=== PATIENT | male | born 1975 | race Caucasian/White ===

== ENCOUNTER 2020-02-29 18:06 | Inpatient (IN) | payer MEDICAID ==
[~2020-02-29] VITALS: Ht 188 cm; Wt 111.1 kg
[2020-02-29] MEDS ORDERED: ASPIRIN81 MG PO (18:13)
[2020-02-29] MEDS ORDERED: ALDACTONE25 MG PO (18:13)
[2020-02-29] MEDS ORDERED: GLUCOPHAGE1000 MG PO (18:13)
[2020-02-29] MEDS ORDERED: ENTRESTO 24 MG1 EACH PO (18:13)
[2020-02-29] MEDS ORDERED: COREG6.25 MG PO (18:13)
--- NOTE | 2020-02-29 18:15 | NUR ---
FSBS= 550 MG/DL
--- NOTE | 2020-02-29 18:25 | NUR ---
URINE SPEC COLLECTED, LABELED AT BS AND SENT TO LAB
[2020-02-29 18:34] VITALS: BP 98/65
[2020-02-29 18:44] LABS: BASOPHILS 0.6 % (0-2); EOSINOPHILS 4.2 % (0-7); HEMATOCRIT 38.2 % (42.0-54.0); IMMATURE GRANULOCYTES 0.1 % (0-5); LYMPHOCYTES 20.9 % (15-50); MCV 85.3 fL (80.0-100.0); MEAN PLATELET VOLUME 9.7 fL (7.4-10.4); MONOCYTES 8.8 % (2-11); NEUTROPHILS 65.4 % (40-80); PLATELET COUNT 171 10x3/uL (130-400); RBC 4.48 10x6/uL (4.20-6.10); RDW 12.6 % (11.5-14.5); WBC 6.9 10x3/uL (4.8-10.8)
[2020-02-29 18:54] LABS: ANION GAP 14.5 mmol/L (8-16); BILIRUBIN - TOTAL 0.42 mg/dL (0.2-1.3); CALCIUM 9.6 mg/dL (8.5-10.1); CARBON DIOXIDE 24.2 mmol/L (21.0-32.0); CREATININE - SERUM 1.9 mg/dL (0.6-1.3); MAGNESIUM - SERUM 2.1 mg/dL (1.8-2.4); POTASSIUM - SERUM 5.7 mmol/L (3.5-5.1); PROTEIN - SERUM 9.2 g/dL (6.4-8.2)
[2020-02-29 19:14] LABS: BILIRUBIN NEGATIVE (NEGATIVE); GLUCOSE 1000 mg/dL (NEGATIVE); KETONE NEGATIVE (NEGATIVE); NITRITE NEGATIVE (NEGATIVE); SPECIFIC GRAVITY 1.015 (1.005-1.020); UROBILINOGEN NORMAL (NORMAL)
[2020-02-29 19:20] VITALS: BP 103/75
--- NOTE | 2020-02-29 21:15 | NUR ---
BS 260 B/P 89/69 HR 70. EDP NOTIFIED. ASYMPTOMATIC. WILL CONTINUE TO MONITOR
[2020-02-29 22:32] VITALS: BP 95/61
[2020-02-29 23:18] VITALS: BP 93/61; BMI 31.4
[2020-03-01 04:20] LABS: BASOPHILS 0.5 % (0-2); EOSINOPHILS 5.1 % (0-7); HEMATOCRIT 34.6 % (42.0-54.0); HEMOGLOBIN 11.6 g/dL (13.5-17.5); IMMATURE GRANULOCYTES 0.2 % (0-5); LYMPHOCYTES 29.2 % (15-50); MCH 28.2 pg (26.0-34.0); MCHC 33.5 g/dL (31.0-37.0); MCV 84.2 fL (80.0-100.0); MEAN PLATELET VOLUME 9.2 fL (7.4-10.4); MONOCYTES 9.3 % (2-11); NEUTROPHILS 55.7 % (40-80); PLATELET COUNT 147 10x3/uL (130-400); RBC 4.11 10x6/uL (4.20-6.10); RDW 12.6 % (11.5-14.5); WBC 5.7 10x3/uL (4.8-10.8)
[2020-03-01 05:32] LABS: ANION GAP 14.2 mmol/L (8-16); CARBON DIOXIDE 23.2 mmol/L (21.0-32.0); CREATININE - SERUM 1.6 mg/dL (0.6-1.3); PHOSPHOROUS 3.7 mg/dL (2.5-4.9)
[2020-03-01 05:35] LABS: POTASSIUM - SERUM 4.4 mmol/L (3.5-5.1)
--- NOTE | 2020-03-01 07:15 | NUR ---
ALERT AND ORIENTED. NO C/O PAIN. NO S/S OF ACUTE DISTRESS NOTED. STRICT I&O. DAILY WEIGHT, 245.9. IV TO LEFT FOREARM, NS INFUSING @ 100ML/HR. SITE PATENT WITHOUT REDNESS OR SWELLING. ON TELEMETRY 67 SR. DENIES ANY NEEDS AT THIS TIME. CALL LIGHT IN REACH. WILL CONTINUE TO MONITOR.
[2020-03-01 07:57] VITALS: BP 120/76
[2020-03-01 12:00] VITALS: BP 118/72
[2020-03-01 12:55] VITALS: Ht 188 cm; Wt 111.1 kg
--- NOTE | 2020-03-01 18:31 | NUR ---
ALERT AND ORIENTED. SITTING UP IN BED EATING SUPPER. NO C/O PAIN. NO S/S OF ACUTE DISTRESS NOTED. DENIES ANY NEEDS AT THIS TIME. CALL LIGHT IN REACH. WILL CONTINUE TO MONITOR.
[2020-03-01 20:00] VITALS: BP 92/62
--- NOTE | 2020-03-01 20:00 | NUR ---
ALERT SITTING UP ON SIDE OF BED, C/O OF CONSTIPATION REQUESTING SOMETHING TO RELIVE IT OR WILL CALL ANF GO HOME, INSTRUCTED WILL CALL AND SEE IF CAN GET SOMETHING , SEE SHIFT ASSESSMENT, CALL GLENYS BOOTH
--- NOTE | 2020-03-01 20:15 | NUR ---
SKYLER ZIMMERMAN APN PAGED AND RETURNED CALL ORDER RECIEVED FOR [facility], GIVEN ORDERED
[2020-03-02] VITALS: BP 110/65
[2020-03-02 04:00] VITALS: BP 115/72
[2020-03-02 04:25] LABS: BASOPHILS 0.3 % (0-2); EOSINOPHILS 4.1 % (0-7); HEMATOCRIT 35.9 % (42.0-54.0); IMMATURE GRANULOCYTES 0.2 % (0-5); MCH 28.4 pg (26.0-34.0); MCHC 33.4 g/dL (31.0-37.0); MCV 85.1 fL (80.0-100.0); MEAN PLATELET VOLUME 9.4 fL (7.4-10.4); MONOCYTES 7.5 % (2-11); NEUTROPHILS 60.9 % (40-80); PLATELET COUNT 161 10x3/uL (130-400); RBC 4.22 10x6/uL (4.20-6.10); RDW 12.9 % (11.5-14.5); WBC 5.9 10x3/uL (4.8-10.8)
[2020-03-02 04:45] LABS: ANION GAP 12.1 mmol/L (8-16); CALCIUM 8.7 mg/dL (8.5-10.1); CARBON DIOXIDE 25.1 mmol/L (21.0-32.0); CREATININE - SERUM 1.6 mg/dL (0.6-1.3); MAGNESIUM - SERUM 1.8 mg/dL (1.8-2.4); PHOSPHOROUS 3.4 mg/dL (2.5-4.9); POTASSIUM - SERUM 4.2 mmol/L (3.5-5.1)
[2020-03-02 08:00] VITALS: BP 115/77
--- NOTE | 2020-03-02 09:00 | NUR ---
ALERT AND ORIENTED X4. PATIENT SITTING UP ON SOB AND VOICES DESIRE TO GO HOME. IV TO LEFT FOREAM AT PRESCRUBED RATE. TELEMETRY INTACT. REFUSES SCD'S AND LOVENOX. DISCUSSED RISK VERSUS BENEFITS AND STATES WAKES IN ROOM. NO S/S OF THROMBOSIS OR EMBOLISM AT THIS TIME. TELEMETRY INTACT . ENCOURAGED TO USE CALL LIGHT FIR ASSIST
[2020-03-02] MEDS ORDERED: GLUCOTROL 5 MG T5 MG PO (11:59)
--- NOTE | 2020-03-02 12:51 | NUR ---
ALL DISCHARGE INSTRUCTIONS COVERED WITH PT. PT DENIES FURTHER QUESTIONS/CONCERNS/NEEDS AT THIS TIME. ALL DISCHARGE PAPERS SIGNED. PIV TO LEFT FA REMOVED WITH CATHETER TIP INTACT. DRESSING APPLIED. PT REFUSES WHEELCHAIR ASSISTANCE AND AMBULATES FROM ROOM FREELY WITHOUT APPARENT S/S OF DISTRESS NOTED. PT DENIES FURTHER NEEDS. ALL SIGNED DISCHARGE PAPERS PLACED IN PT CHART.
--- NOTE | 2020-03-02 13:28 | MORECARE ---
CASE MANAGEMENT DISCHARGE SUMMARY PATIENT: BLANCA VIVEROS UNIT: [id number] ADM DATE: 03/01/20 AGE: 44 : 75 SEX: M ROOM/BED: D.2238 AUTHOR: REINA KEMP PHYSICIAN: REFERRING PHYSICIAN: PATRICIA BRIONES MD DATE OF SERVICE: 03/02/20 Discharge Plan Patient Name: BLANCA VIVEROS Facility: [facility]:[place] : 1975 Planned Disposition: Home Anticipated Discharge Date: Discharge Date: Expected LOS: Initial Reviewer: [email or web address] Initial Review Date: 03/02/2020 Generated: 03/02/20 2:27 pm Patient Name: BLANCA VIVEROS Page 94040 at 1328 All edits/amendments must be made on the electronic document DICTATION DATE: 03/02/20 1327 DATABASE MARKETING MANAGER: ELIJAH 03/02/20 1327 RPT#: [id number] DC DATE: STATUS: ADM IN [facility] [address] [place] [address] END OF REPORT
--- NOTE | 2020-03-02 13:35 | MORECARE ---
CASE MANAGEMENT DISCHARGE SUMMARY PATIENT: BLANCA VIVEROS UNIT: [id number] ADM DATE: 03/01/20 AGE: 44 : 75 SEX: M ROOM/BED: D.2238 AUTHOR: REINA KEMP PHYSICIAN: REFERRING PHYSICIAN: PATRICIA BRIONES MD DATE OF SERVICE: 03/02/20 Discharge Plan Patient Name: BLANCA VIVEROS Facility: [facility]:[place] : 1975 Planned Disposition: Home Anticipated Discharge Date: Discharge Date: Expected LOS: Initial Reviewer: [email or web address] Initial Review Date: 03/02/2020 Generated: 03/02/20 2:35 pm DCPIA - Discharge Planning Initial Assessment Updated by [email or web address]: Jose Alfredo Donohue on 03/02/20 1:30 pm * Is the patient Alert and Oriented? Yes * How many steps to enter\exit or inside your home? * PCP DR. KAMALA BERRY ABERDEEN * Pharmacy [facility] * Preadmission Environment Home Alone * ADLs Independent * Equipment None * Other Equipment NO MEDICAL EQUIPMENT PROVIDER PREFERENCE * List name and contact numbers for known caregivers / representatives who currently or will assist patient after discharge: GÓMEZ CAMACHO, GIRLFRIEND, * Verbal permission to speak to the caregivers and representatives has been obtained from the patient. N/A * Community resources currently utilized None * Please name any agencies selected above. NONE * Additional services required to return to the preadmission environment? No * Can the patient safely return to the preadmission environment? Yes * Has this patient been hospitalized within the prior 30 days at any hospital? No Last DP export: 03/02/20 12:28 pm Patient Name: BLANCA VIVEROS Page 91970 at 1335 All edits/amendments must be made on the electronic document DICTATION DATE: 03/02/20 1335 CERAMIC SPRAYER: ELIJAH 03/02/20 1335 RPT#: [id number] DC DATE: STATUS: ADM IN [facility] [address] [place] [address] END OF REPORT
--- NOTE | 2020-03-02 13:50 | MORECARE ---
CASE MANAGEMENT DISCHARGE SUMMARY PATIENT: BLANCA VIVEROS UNIT: [id number] ADM DATE: 03/01/20 AGE: 44 : 75 SEX: M ROOM/BED: D.2238 AUTHOR: VIRIDIANA,DOC PHYSICIAN: REFERRING PHYSICIAN: PATRICIA BRIONES MD DATE OF SERVICE: 03/02/20 Discharge Plan Patient Name: BLANCA VIVEROS Facility: [facility]:[place] : 1975 Planned Disposition: Home Anticipated Discharge Date: Discharge Date: Expected LOS: Initial Reviewer: [email or web address] Initial Review Date: 03/02/2020 Generated: 03/02/20 2:50 pm Comments DCP- Discharge Planning Updated by [email or web address]: Jose Alfredo Donohue on 03/02/20 12:[address] Patient Name: BLANCA VIVEROS Admission Status: ER Accout number: [id number] Admission Date: 03-01-2020 : 1975 Admission Diagnosis:TYPE 2 DIABETES MELLITUS WITH HYPERGLYCEMIA Attending: IBETH Current LOS: 1 Anticipated DC Date: Planned Disposition: Home Primary Insurance: MEDICAID [place] Discharge Planning Comments: CM MET WITH PT IN ROOM TO DISCUSS DISCHARGE PLANNING AND NEEDS. PT REPORTS LIVING AT HOME INDEPENDENTLY AND ALONE, PT'S GIRLFRIEND IS IN THE HOME WITH PT MOST OF THE TIME. PT HAS NO MEDICAL EQUIPMENT AND NO OUTSIDE SERVICES ASSISTING IN THE HOME. CM DISCUSSED AVAILABILITY OF HOME HEALTH, REHAB SERVICES AND MEDICAL EQUIPMENT. PT DENIES DISCHARGE NEEDS, REPORTS HIS GIRLDFRIEND WILL PICK HIM UP FOR DISCHARGE HOME. IMPORTANT MESSAGE FROM MEDICARE PROVIDED AND EXPLAINED. PT PLANS TO DISCHARGE HOME TO HIS APARTMENT WITH GIRLFRIEND, WHO WILL TRANSPORT PT HOME. PT DENIES KNOWN DISCHARGE NEEDS AT THIS TIME. CM TO FOLLOW AND ASSIST NEEDED. Upholstered Goods Crafter: Jose Alfredo Donohue DCPIA - Discharge Planning Initial Assessment Updated by [email or web address]: Jose Alfredo Donohue on 03/02/20 1:30 pm * Is the patient Alert and Oriented? Yes * How many steps to enter\exit or inside your home? * PCP DR. KAMALA BERRY [place] * Pharmacy [facility] [address] * Preadmission Environment Home Alone * ADLs Independent * Equipment None * Other Equipment NO MEDICAL EQUIPMENT PROVIDER PREFERENCE * List name and contact numbers for known caregivers / representatives who currently or will assist patient after discharge: GÓMEZ CAMACHO, GIRLFRIEND, * Verbal permission to speak to the caregivers and representatives has been obtained from the patient. N/A * Community resources currently utilized None * Please name any agencies selected above. NONE * Additional services required to return to the preadmission environment? No * Can the patient safely return to the preadmission environment? Yes * Has this patient been hospitalized within the prior 30 days at any hospital? No Last DP export: 03/02/20 12:35 pm Patient Name: BLANCA VIVEROS Page 16259 at 1350 All edits/amendments must be made on the electronic document DICTATION DATE: 03/02/20 1350 FOUNDER: ELIJAH 03/02/20 1350 RPT#: [id number] DC DATE: STATUS: ADM IN [facility] [address] [place] [address] END OF REPORT
--- NOTE | 2020-03-02 19:45 | MORECARE ---
CASE MANAGEMENT DISCHARGE SUMMARY PATIENT: BLANCA VIVEROS UNIT: [id number] ADM DATE: 03/01/20 AGE: 44 : 75 SEX: M ROOM/BED: D.2238 AUTHOR: VIRIDIANA,DOC PHYSICIAN: REFERRING PHYSICIAN: PATRICIA BRIONES MD DATE OF SERVICE: 03/02/20 Discharge Plan Patient Name: BLANCA VIVEROS Facility: [facility]:[place] : 1975 Planned Disposition: Home Anticipated Discharge Date: Discharge Date: 03/02/2020 Expected LOS: Initial Reviewer: [email or web address] Initial Review Date: 03/02/2020 Generated: 03/02/20 8:45 pm Comments DCP- Discharge Planning Updated by [email or web address]: Jose Alfredo Donohue on 03/02/20 12:[address] Patient Name: BLANCA VIVEROS Admission Status: ER Accout number: [id number] Admission Date: 03-01-2020 : 1975 Admission Diagnosis:TYPE 2 DIABETES MELLITUS WITH HYPERGLYCEMIA Attending: IBETH Current LOS: 1 Anticipated DC Date: Planned Disposition: Home Primary Insurance: MEDICAID [place] Discharge Planning Comments: CM MET WITH PT IN ROOM TO DISCUSS DISCHARGE PLANNING AND NEEDS. PT REPORTS LIVING AT HOME INDEPENDENTLY AND ALONE, PT'S GIRLFRIEND IS IN THE HOME WITH PT MOST OF THE TIME. PT HAS NO MEDICAL EQUIPMENT AND NO OUTSIDE SERVICES ASSISTING IN THE HOME. CM DISCUSSED AVAILABILITY OF HOME HEALTH, REHAB SERVICES AND MEDICAL EQUIPMENT. PT DENIES DISCHARGE NEEDS, REPORTS HIS GIRLDFRIEND WILL PICK HIM UP FOR DISCHARGE HOME. IMPORTANT MESSAGE FROM MEDICARE PROVIDED AND EXPLAINED. PT PLANS TO DISCHARGE HOME TO HIS APARTMENT WITH GIRLFRIEND, WHO WILL TRANSPORT PT HOME. PT DENIES KNOWN DISCHARGE NEEDS AT THIS TIME. CM TO FOLLOW AND ASSIST NEEDED. Blow Mold Technician: Jose Alfredo Donohue DCPIA - Discharge Planning Initial Assessment Updated by [email or web address]: Jose Alfredo Donohue on 03/02/20 1:30 pm * Is the patient Alert and Oriented? Yes * How many steps to enter\exit or inside your home? * PCP DR. KAMALA BERRY [place] * Pharmacy [facility] [address] * Preadmission Environment Home Alone * ADLs Independent * Equipment None * Other Equipment NO MEDICAL EQUIPMENT PROVIDER PREFERENCE * List name and contact numbers for known caregivers / representatives who currently or will assist patient after discharge: GÓMEZ CAMACHO, GIRLFRIEND, * Verbal permission to speak to the caregivers and representatives has been obtained from the patient. N/A * Community resources currently utilized None * Please name any agencies selected above. NONE * Additional services required to return to the preadmission environment? No * Can the patient safely return to the preadmission environment? Yes * Has this patient been hospitalized within the prior 30 days at any hospital? No Last DP export: 03/02/20 12:50 pm Patient Name: BLANCA VIVEROS Page 15863 at 1945 All edits/amendments must be made on the electronic document DICTATION DATE: 03/02/201944 STONE SETTER APPRENTICE: ELIJAH 03/02/201944 RPT#: [id number] DC DATE:03/02/20 STATUS: DIS IN [facility] [address] [place] [address] END OF REPORT
== END 2020-03-02 13:59 | disposition home or self-care (01) | DRG 638 ==
LOC: D.ER 18:06 → D.MS 22:35 → OBSVTIME 22:35 → D.MS 03-01 19:58
PROVIDERS: Family Medicine; ADMIT Family Medicine; ATTEND Family Medicine
DX: E11.65 Type 2 diabetes mellitus with hyperglycemia (principal); E87.1 Hypo-osmolality and hyponatremia; N17.9 Acute kidney failure, unspecified; E87.5 Hyperkalemia; I11.0 Hypertensive heart disease with heart failure; I50.9 Heart failure, unspecified; D64.9 Anemia, unspecified; R74.0 Nonspecific elevation of levels of transaminase and lactic acid dehydrogenase [LDH]